=== PATIENT | female | born 1945 | race Two or more races ===

== ENCOUNTER 2019-10-23 10:12 | Outpatient (CLI) | payer OTHER ==
[~2019-10-23 10:12] MED LIST: COUMADIN5 MG; FENOFIBRATE160 MG; GLIPIZIDE10 MG; GLUCOTROL10 MG; ORPH100T PO; PEPCID40 MG PO; SIMVASTATIN10 MG; SYNTHROID50 MCG; TOPROL XL50 MG; VASOTEC5 MG; ZOFRAN8 MG PO
== END 2019-10-23 10:48 | disposition home or self-care (01) ==
LOC: NUCLEAR 10:12
DX: R07.89 Other chest pain (principal); I50.9 Heart failure, unspecified

== ENCOUNTER 2021-02-27 08:00 | Outpatient (CLI) | payer OTHER | END 2021-02-27 08:01 | disposition home or self-care (01) | LOC: NUCLEAR 08:00 | PROVIDERS: ATTEND Internal Medicine Cardiovascular Disease | DX: I50.1 Left ventricular failure, unspecified (principal) | CPT/HCPCS: 78452; 93017; A9500; J0153 ==

== ENCOUNTER 2021-04-06 09:13 | Outpatient (CLI) | payer OTHER | END 2021-04-06 09:21 | disposition home or self-care (01) | LOC: RAD 09:13 | PROVIDERS: ATTEND Internal Medicine Cardiovascular Disease | DX: R07.89 Other chest pain (principal) ==

== ENCOUNTER 2022-06-24 09:04 | Outpatient (CLI) | payer OTHER | END 2022-06-24 09:13 | disposition home or self-care (01) | LOC: MAMO-SONO 09:04 | PROVIDERS: ATTEND Internal Medicine Cardiovascular Disease | DX: N63.11 Unspecified lump in the right breast, upper outer quadrant (principal); M46.47 Discitis, unspecified, lumbosacral region ==

== ENCOUNTER 2022-10-18 11:30 | Outpatient (CLI) | payer OTHER | END 2022-10-18 11:36 | disposition home or self-care (01) | LOC: RAD 11:30 | PROVIDERS: ATTEND Physical Medicine & Rehabilitation | DX: M25.562 Pain in left knee (principal); M25.572 Pain in left ankle and joints of left foot ==

== ENCOUNTER 2022-12-22 17:49 | Emergency (ER) | payer OTHER ==
[~2022-12-22] VITALS: Ht 165.1 cm; Wt 90.7 kg
[2022-12-23] MEDS ORDERED: CIPRO500 MG PO (06:18)
[2022-12-23] MEDS ORDERED: PEPCID40 MG PO (06:20)
[2022-12-23] MEDS ORDERED: ZOFRAN8 MG PO (06:20)
== END 2022-12-23 08:24 ==
LOC: ER 17:49
DX: K59.00 Constipation, unspecified (principal); E11.9 Type 2 diabetes mellitus without complications; Z79.84 Long term (current) use of oral hypoglycemic drugs; I10 Essential (primary) hypertension

== ENCOUNTER 2023-03-18 09:49 | Emergency (ER) | payer OTHER ==
[~2023-03-18] VITALS: Ht 160 cm; Wt 90.7 kg
[~2023-03-18 09:49] MED LIST changes: +CIPRO500 MG PO
[2023-03-18] MEDS ORDERED: JANUVIA100 MG PO (10:27)
== END 2023-03-18 13:22 | disposition home or self-care (01) ==
LOC: ER 09:49
DX: R10.13 Epigastric pain (principal)

== ENCOUNTER 2023-03-20 20:57 | Emergency (ER) | payer OTHER ==
[~2023-03-20] VITALS: Ht 165.1 cm; Wt 88.9 kg
[~2023-03-20 20:57] MED LIST changes: +JANUVIA100 MG PO
== END 2023-03-20 23:43 | disposition home or self-care (01) ==
LOC: ER 20:57
DX: T38.3X5A Adverse effect of insulin and oral hypoglycemic [antidiabetic] drugs, initial encounter (principal)

== ENCOUNTER 2023-03-22 23:03 | Emergency (ER) | payer OTHER ==
[~2023-03-22] VITALS: Ht 167.6 cm; Wt 88.9 kg
== END 2023-03-23 01:44 | disposition home or self-care (01) ==
LOC: ER 23:03
DX: K29.70 Gastritis, unspecified, without bleeding (principal); R10.9 Unspecified abdominal pain; I10 Essential (primary) hypertension; E11.9 Type 2 diabetes mellitus without complications; Z79.84 Long term (current) use of oral hypoglycemic drugs

== ENCOUNTER 2023-03-27 16:57 | Emergency (ER) | payer OTHER ==
[~2023-03-27] VITALS: Ht 167.6 cm; Wt 88.9 kg
[2023-03-27] MEDS ORDERED: SUCRALFATE1 GM PO (17:12)
[2023-03-27] MEDS ORDERED: ENALAPRIL MALEA10 MG PO (17:12)
[2023-03-27] MEDS ORDERED: JARDIANCE25 MG PO (17:13)
== END 2023-03-27 20:08 | disposition home or self-care (01) ==
LOC: ER 16:57
DX: E11.65 Type 2 diabetes mellitus with hyperglycemia (principal); Z79.84 Long term (current) use of oral hypoglycemic drugs; I10 Essential (primary) hypertension; Z95.4 Presence of other heart-valve replacement

== ENCOUNTER 2023-09-18 01:39 | Emergency (ER) | payer OTHER ==
[~2023-09-18] VITALS: Ht 162.6 cm; Wt 72.6 kg
[~2023-09-18 01:39] MED LIST changes: +ENALAPRIL MALEA10 MG PO; +JARDIANCE25 MG PO; +SUCRALFATE1 GM PO
[2023-09-18 03:25] LABS: HEMATOCRIT 41.9 % (36.0-45.00); HEMOGLOBIN 14.3 g/dL (12.0-15.00); MEAN CORPUSCULAR HEMOGLOBIN 31.7 pg (27.00-32.0); MEAN CORPUSCULAR HGB CONC 34.1 g/dl (32.0-36.0); PLATELET COUNT 251 K/uL (150-450); RED CELL DISTRIBUTION WIDTH 14.3 % (11.5-14.5)
[2023-09-18 03:43] LABS: CALCIUM 9.4 mg/dL (8.5-10.1); CREATININE SERUM 1.24 mg/dL (0.55-1.02); GFR 41.94; POTASSIUM 4.37 mEq/L (3.5-5.1)
== END 2023-09-18 06:19 | disposition home or self-care (01) ==
LOC: ER 01:39
DX: E16.2 Hypoglycemia, unspecified (principal); E11.9 Type 2 diabetes mellitus without complications

== ENCOUNTER 2023-11-24 09:32 | Outpatient (CLI) | payer OTHER | END 2023-11-24 10:18 | disposition home or self-care (01) | LOC: RAD 09:32 | PROVIDERS: ATTEND Internal Medicine | DX: I10 Essential (primary) hypertension (principal); E04.9 Nontoxic goiter, unspecified ==

== ENCOUNTER 2023-11-24 10:01 | Emergency (ER) | payer OTHER ==
[~2023-11-24] VITALS: Ht 165.1 cm; Wt 89.4 kg
[2023-11-24] MEDS ORDERED: cloNIDine HCL 0.2 MG TABLET PO ONE (10:30)
[2023-11-24] MEDS ORDERED: CLONIDINE HCL 0.1 MG TABLET PO ONE (11:00)
[2023-11-24] MEDS ORDERED: FUROsemide 20 MG TABLET PO ONE (11:00)
== END 2023-11-24 11:35 | disposition home or self-care (01) ==
LOC: ER 10:01
DX: I10 Essential (primary) hypertension (principal)

== ENCOUNTER 2024-04-09 01:55 | Inpatient (IN) | payer OTHER ==
[~2024-04-09] VITALS: Ht 162.6 cm; Wt 88.5 kg
[~2024-04-09 01:55] MED LIST changes: +INTESTINEX680 M1 PO; +LEVSIN/SL0.125 MG SL
[2024-04-09] MEDS ORDERED: JANUMET XR 1001 EACH (02:09)
--- NOTE | 2024-04-09 02:37 | NUR ---
SE RECIBE FEMINA ALERTA Y ORIENTADA POR MELISSA ESFERAS CON BUEN PATRON RESPIRATORIO, REFIERE QUE DESDE HACE DAKOTAH SEMANA SIENTE PALPITACIONES. SE REALIZA EKG Y SE PRESENTA A MEDICO DE TURNO POR EL CUAL SE COLOCA PTE EN CRITICO SUNSHINE #2. SE CONECTA A MONITOR CARDIACO, NBP Y OXIMETRIA CONTINUA. SE ORIENTA SOBRE TRATAMIENTO E INSTRUCCIONES A SEGUIR, ANDREINA REFIERE ENTENDER. SE COLECTA MUESTRAS Y SE CANALIZA RENEA ORDEN MEDICA.
[2024-04-09 03:12] LABS: HEMATOCRIT 40.7 % (36.0-45.00); HEMOGLOBIN 13.5 g/dL (12.0-15.00); MEAN CELL VOLUME 91.9 fL (80.00-100.00); MEAN CORPUSCULAR HEMOGLOBIN 30.5 pg (27.00-32.0); MEAN CORPUSCULAR HGB CONC 33.2 g/dl (32.0-36.0); PLATELET COUNT 208 K/uL (150-450); RED BLOOD COUNT 4.43 M/uL (4.00-6.00); RED CELL DISTRIBUTION WIDTH 15.6 % (11.5-14.5)
[2024-04-09 03:15] LABS: ALBUMIN 3.8 gm/dL (3.4-5.0); BILIRUBIN TOTAL 0.53 mg/dL (0.3-1.2); CALCIUM 9.2 mg/dL (8.5-10.1); GFR 53.62; GLOBULINA 3.7 G/DL (2.4-3.5); POTASSIUM 5.09 mEq/L (3.5-5.1); TOTAL PROTEIN 7.5 gm/dL (6.4-8.2)
[2024-04-09 03:22] LABS: INR 1.65; PARTIAL THROMBOPLASTIN TIME 34.6 SECONDS (22.0-34.0)
[2024-04-09 03:23] LABS: PROTHROMBIN TIME 16.7 SECONDS (9.0-11.5)
[2024-04-09] MEDS ORDERED: NITROGLYCERIN IN 5 % DEXTROSE 50 MG/250 ML BOTTLE IV ONE (03:58)
[2024-04-09] MEDS ORDERED: NITROGLYCERIN IN 5 % DEXTROSE 250 ML IV SCH ×2 (04:00→08:15)
--- NOTE | 2024-04-09 07:14 | NUR ---
FEMINA ALERTA Y ORIENTADA X3 UN UNIDAD DE ICU-2 CAMA #2 POSICION MAS BAJA Y BARANDAS ELEVADAS POR SEGURIDAD. PACIENTE CONECTADA A MONITOR CARDIACO Y OXIMETRIA DE PULSO CONTINUA. VENOPUNCION EN MANO DERECHA #20 PATENTE BIMAL DE EDEMA Y ERITEMA. SE OBSERVA DRIP DE TRIDIL 50MG/250MLS @ 10 MLS. PACIENTE PENDIENTE RESULTADOS DE LABORATORIO.
--- NOTE | 2024-04-09 08:00 | NUR ---
DR JHAVERI EVALUA A PACIENTE EN LA UNIDAD. DR HENDERSON COLOCAR CONSULTA CON MEDICINA INTERNA AL DR DELON CORTEZ.
[2024-04-09] MEDS ORDERED: ENOXAPARIN SODIUM 80 MG/0.8 ML SYRINGE SUBCUTANEO SCH (10:15)
[2024-04-09] MEDS ORDERED: ENOXAPARIN SODIUM 80 MG/0.8 ML SYRINGE SUBCUTANEO ONE (10:32)
[2024-04-09] MEDS ORDERED: LOSARTAN/HYDROCHLOROTHIAZIDE 1 UDTAB TABLET PO SCH (12:24)
[2024-04-09] MEDS ORDERED: ASPIRIN 81 MG TABLET.EC PO SCH (12:25)
--- NOTE | 2024-04-09 12:48 | NUR ---
SE NOTIFICA ESTUDIO DE ECHO PENDIENTE.
[2024-04-09] MEDS ORDERED: ENOXAPARIN SODIUM 40 MG/0.4 ML SYRINGE SUBCUTANEO SCH (14:32)
[2024-04-09] MEDS ORDERED: DEXTROSE 50 % IN WATER 0.5 G/ML DISP.SYRIN IV PRN (14:45)
[2024-04-09] MEDS ORDERED: NITROGLYCERIN 250 ML IV SCH (14:45)
[2024-04-09] MEDS ORDERED: 0.9 % SODIUM CHLORIDE 1,000 ML IV SCH (14:45)
[2024-04-09] MEDS ORDERED: INSULIN LISPRO 1,000 UNIT/10 ML UNITS SUBCUTANEO PRN (14:45)
[2024-04-09 16:13] LABS: URINE APPEARANCE Clear; URINE BILIRRUBIN Negative (NEGATIVE); URINE BLOOD Large; URINE COLOR Yellow; URINE GLUCOSE Negative (NEGATIVE); URINE LEUKOCYTE Negative; URINE NITRATE Negative; URINE PROTEIN Trace (NEGATIVE); URINE UROBILINOGEN 0.2 E.U./dl
[2024-04-09 16:14] LABS: URINE BACTERIA 13.8 uL (0.0-1933); URINE RBC 86.8 uL (0.0-20.8); URINE WBC 3.6 uL (0.0-23.2)
[2024-04-09 16:17] LABS: URINE EPITHELIAL CELLS 0.6 uL (0.0-38.8)
[2024-04-09] MEDS ORDERED: ACETAMINOPHEN 500 MG GEL..CAP PO ONE (16:37)
[2024-04-09 16:59] LABS: ABG PH 7.394 (7.35-7.45); ABG PO2 64.3 mmHg (80-100); ABG pCO2 43.3 mmHg (35-45); BASE EXCESS 0.7 mmol/l; BICARBONATE 25.9 mmol/l (23-25); SaO2 92.1 %; Tco2 27.2 mmol/l; allen test SATISFACTORY; o2 32 %; puncture site RADIAL RIGHT
[2024-04-10] MEDS ORDERED: LOSARTAN/HYDROCHLOROTHIAZIDE 1 TAB TABLET PO SCH (09:00)
[2024-04-10] MEDS ORDERED: ISOSORBIDE MONONITRATE 30 MG TABLET PO SCH (09:00)
[2024-04-10] MEDS ORDERED: AMLODIPINE BESYLATE 5 MG TABLET PO SCH (17:00)
[2024-04-10] MEDS ORDERED: WARFARIN SODIUM 2 MG TABLET PO SCH (21:00)
[2024-04-11] MEDS ORDERED: DOXAZOSIN MESYLATE 2 MG TABLET PO SCH (09:00)
[2024-04-11] MEDS ORDERED: AMLODIPINE BESYLATE 10 MG TABLET PO SCH (17:00)
[2024-04-11] MEDS ORDERED: ACETAMINOPHEN 500 MG GEL..CAP PO PRN (19:30)
[2024-04-11] MEDS ORDERED: WARFARIN SODIUM 4 MG TABLET PO SCH (21:00)
[2024-04-12 08:24] LABS: INR 1.32; PROTHROMBIN TIME 13.6 SECONDS (9.0-11.5)
[2024-04-12 08:34] LABS: PARTIAL THROMBOPLASTIN TIME 39.9 SECONDS (22.0-34.0)
[2024-04-13 06:57] LABS: INR 1.31; PROTHROMBIN TIME 13.5 SECONDS (9.0-11.5)
== END 2024-04-13 13:39 | disposition home or self-care (01) | DRG 281 ==
LOC: ER 01:55 → MEDI 15:23
PROVIDERS: General Practice; ADMIT Internal Medicine; ATTEND Internal Medicine
PROC: B246ZZZ Ultrasonography of Right and Left Heart (ICD-10-PCS; principal; 2024-04-09)
PROC: 4A12X4Z Monitoring of Cardiac Electrical Activity, External Approach (ICD-10-PCS; 2024-04-09)
DX: I21.4 Non-ST elevation (NSTEMI) myocardial infarction (principal); I16.9 Hypertensive crisis, unspecified; R00.2 Palpitations; I11.9 Hypertensive heart disease without heart failure; I25.10 Atherosclerotic heart disease of native coronary artery without angina pectoris; E11.9 Type 2 diabetes mellitus without complications; Z95.4 Presence of other heart-valve replacement; Z79.84 Long term (current) use of oral hypoglycemic drugs

== ENCOUNTER 2024-09-16 03:36 | Emergency (ER) | payer OTHER ==
[~2024-09-16] VITALS: Ht 165.1 cm; Wt 84.8 kg
[~2024-09-16 03:36] MED LIST changes: +JANUMET XR 1001 EACH
[2024-09-16] MEDS ORDERED: METHYLPREDNISOLONE SOD SUCC 125 MG VIAL IV STA (07:32)
[2024-09-16] MEDS ORDERED: METHYLPREDNISOLONE SOD SUCC 125 MG VIAL ONE (07:37)
[2024-09-16] MEDS ORDERED: IPRATROPIUM/ALBUTEROL SULFATE 3 ML AMPUL.NEB IH ONE (07:40)
[2024-09-16 08:00] VITALS: BP 143/60; O2SAT 97
[2024-09-16 08:05] LABS: ABG PH 7.386 (7.35-7.45); ABG PO2 57.9 mmHg (80-100); ABG pCO2 41.6 mmHg (35-45)
[2024-09-16 08:06] LABS: BASE EXCESS -0.7 mmol/l; BICARBONATE 24.4 mmol/l (23-25); SaO2 89.2 %; Tco2 25.7 mmol/l; allen test SATISFACTORY; o2 21 %; puncture site RADIAL RIGHT
[2024-09-16 08:10] LABS: HEMATOCRIT 37.3 % (36.0-45.00); HEMOGLOBIN 12.8 g/dL (12.0-15.00); MEAN CELL VOLUME 92.1 fL (80.00-100.00); MEAN CORPUSCULAR HEMOGLOBIN 31.6 pg (27.00-32.0); MEAN CORPUSCULAR HGB CONC 34.4 g/dl (32.0-36.0); PLATELET COUNT 226 K/uL (150-450); RED BLOOD COUNT 4.05 M/uL (4.00-6.00); RED CELL DISTRIBUTION WIDTH 14.4 % (11.5-14.5)
[2024-09-16 08:56] LABS: CALCIUM 8.8 mg/dL (8.5-10.1); CREATININE SERUM 0.96 mg/dL (0.55-1.02); GFR 56.21; POTASSIUM 4.42 mEq/L (3.5-5.1)
[2024-09-16] MEDS ORDERED: IPRATROPIUM/ALBUTEROL SULFATE 3 ML AMPUL.NEB IH SCH (09:00)
== END 2024-09-16 10:14 | disposition home or self-care (01) ==
LOC: ER 03:36
DX: R06.09 Other forms of dyspnea (principal); R06.02 Shortness of breath; Z20.822 Contact with and (suspected) exposure to COVID-19
CPT/HCPCS: 36415; 71045; 82803; 93041; 94640; 94760; 96365; 99283; J3490